=== PATIENT | female | born 1955 | race Caucasian/White ===

== ENCOUNTER 2017-07-15 07:59 | Emergency (ER) | payer BC ==
[2017-07-15 08:50] VITALS: BP 120/65
--- NOTE | 2017-07-15 09:15 | UC ---
Throat Pain/Nasal Osmani HPI - HPI Summary HPI Summary: per rn private duty "Sinus congestion for 1.5 weeks with facial and head, teeth aches , left ear feels full, cough" She gets sinus infections Q Springa nd fall and knows sx. Teeth hurt and pain over cheeks x 1 wk. does saline rinses regularly. not using steroid nasal spray. no cough or wheezing, no fever. - History of Current Complaint Chief Complaint: UCRespiratory Stated Complaint: SINUS Time Seen by Provider: 07/15/17 08:21 Hx Last Menstrual Period: n/a - Allergies/Home Medications Allergies/Adverse Reactions: Allergies Allergy/AdvReac Type Severity Reaction Status Date / Time No Known Allergies Allergy Verified 07/15/17 08:36 Home Medications: Home Medications Baclofen TAB* [Lioresal TAB*] 10 mg PO SEE INSTRUCTIONS 07/15/17 [History Confirmed 07/15/17] Pregabalin CAP(*) [Lyrica CAP(*)] 150 mg PO QPM 07/15/17 [History Confirmed ] PMH/Surg Hx/FS Hx/Imm Hx Previously Healthy: Yes - Surgical History Surgical History: Yes Surgery Procedure, Year, and Place: Appendectomy, 2009, [facility]. C5 C6 Fusion, 1998, [place] [facility],bilateral breast biopsies - Family History Known Family History: Positive: Hypertension - Social History Alcohol Use: Occasionally Substance Use Type: None Smoking Status (MU): Never Smoked Tobacco Review of Systems Constitutional: Fatigue Skin: Negative Eyes: Negative ENT: Dental Pain, Sinus Pain/Tenderness Respiratory: Negative Cardiovascular: Negative Gastrointestinal: Negative Genitourinary: Negative Motor: Negative Neurovascular: Negative Musculoskeletal: Negative Neurological: Negative Psychological: Negative Is Patient Immunocompromised?: No All Other Systems Reviewed And Are Negative: Yes Physical Exam Triage Information Reviewed: Yes Appearance: Well-Nourished - very pleasant, Pain Distress Vital Signs: Initial Vital Signs Temp 98.5 F 07/15/17 08:29 Pulse 84 07/15/17 08:29 Resp 18 07/15/17 08:29 BP 120/65 07/15/17 08:29 Pulse Ox 99 07/15/17 08:29 Vital Signs Reviewed: Yes Eye Exam: Normal ENT: Positive: Hearing grossly normal, Pharyngeal erythema - +PND, no exudate, TMs normal, Other: - + maxillary tenderness B/L. Negative: Tonsillar swelling, Tonsillar exudate Dental Exam: Normal Neck exam: Normal Neck: Positive: Supple, Nontender, No Lymphadenopathy Respiratory Exam: Normal Respiratory: Positive: Lungs clear, Normal breath sounds, No respiratory distress. Negative: Crackles, Rhonchi, Stridor Cardiovascular Exam: Normal Cardiovascular: Positive: RRR, No Murmur, Pulses Normal Abdomen Description: Positive: Nontender, Soft Musculoskeletal Exam: Normal Neurological Exam: Normal Psychological Exam: Normal Skin Exam: Normal Throat Pain/Nasal Course/Dx - Differential Dx/Diagnosis Differential Diagnosis/HQI/PQRI: Sinusitis, Tonsillitis, URI, Other Provider Diagnoses: Sinusitis Discharge - Discharge Plan Condition: Stable Disposition: HOME Prescriptions: Amoxicillin PO (*) [Amoxicillin 875 MG (*)] 875 mg PO BID #20 tab Patient Education Materials: Sinusitis (ED) Referrals: Ondina Cruz MD [Primary Care Provider] - If Needed Additional Instructions: Make sure to take a probiotic daily while on antibiotics to help prevent a potential complication of antibiotic use called c diff. Some well known brands that can be found OTC are florastor, OneTag and [employer]. Make sure to complete the entire prescription unless advised otherwise by your health care provider.
== END 2017-07-15 09:25 | disposition home or self-care (01) ==
LOC: UCCORT 07:59
DX: J32.9 Chronic sinusitis, unspecified (principal)
CPT/HCPCS: 99212; G0463